=== PATIENT | female | born 1970 | race Caucasian/White ===

== ENCOUNTER 2017-10-24 09:30 | Observation (INO) | payer OTHER ==
[~2017-10-24 09:30] MED LIST: ATROPINE 1 MG/10 ML SYRINGE IV; DIPHENHYDRAMINE 50 MG INJ IV; EPHEDrine SULFATE 50 MG/5 ML SYG IV; FENTAnyl 50 MCG/ML VIAL IV; HYDROmorphONE (0.2 MG/ML) 10ML SYG IV; LABETALOL HCL 20MG INJ IV; MEPERIDINE 25 MG INJ IV; MIDAZOLAM 1 MG/ML 2 ML INJ IV; OXYCODONE/ACETAMINOPHEN (5/325) TAB PO; hydrALAzine 20 MG INJ IV; morphine (1 MG/ML) 10ML SYRINGE IV
[2017-10-24 10:50] LABS: ADD MAN DIFF? NO
[2017-10-24 10:57] LABS: BASOPHIL # 0.1 10^3/ul (0.0-0.1); BASOPHILS % 0.8 % (0.0-2.0); EOSINOPHILS # 0.4 10^3/ul (0.0-0.5); EOSINOPHILS % 3.7 % (0.0-7.0); HEMATOCRIT 37.8 % (37.0-47.0); HEMOGLOBIN 12.8 g/dl (12.0-16.0); LYMPHOCYTES # 3.5 10^3/ul (0.8-2.9); LYMPHOCYTES % 34.1 % (15.0-51.0); MEAN CORPUSCULAR HEMOGLOBIN 29.4 pg (29.0-33.0); MEAN CORPUSCULAR HGB CONC 33.9 g/dl (32.0-37.0); MEAN CORPUSCULAR VOLUME 86.7 fl (82.0-101.0); MEAN PLATELET VOLUME 9.4 fl (7.4-10.4); MONOCYTE # 0.5 10^3/ul (0.3-0.9); MONOCYTES % 4.9 % (0.0-11.0); NEUTROPHIL # 5.7 10^3/ul (1.6-7.5); NEUTROPHILS % 56.1 % (39.0-77.0); PLATELET COUNT 362 10^3/UL (140-415); RED BLOOD COUNT 4.36 10^6/ul (4.20-5.40); RED CELL DISTRIBUTION WIDTH 13.7 % (11.5-14.5)
[2017-10-24 10:57] LABS: WHITE BLOOD COUNT 10.2 10^3/ul (4.8-10.8)
[2017-10-24] MEDS ORDERED: ROCURONIUM 50 MG INJ (10:58)
[2017-10-24] MEDS ORDERED: LIDOCAINE 2% (SDV) 5 ML INJ (10:58)
[2017-10-24] MEDS ORDERED: MIDAZOLAM 1 MG/ML 2 ML INJ (10:58)
[2017-10-24] MEDS ORDERED: GLYCOPYRROLATE 0.4 MG INJ (10:58)
[2017-10-24] MEDS ORDERED: DEXAMETHASONE 4 MG/ML 1 ML INJ (10:58)
[2017-10-24] MEDS ORDERED: PROPOFOL 20 ML (10:58)
[2017-10-24] MEDS ORDERED: NEOSTIGMINE 3 MG/3 ML SYRINGE (10:58)
[2017-10-24] MEDS ORDERED: ONDANSETRON 4 MG INJ ×2 (10:58→13:20)
[2017-10-24] MEDS ORDERED: FENTAnyl 50 MCG/ML VIAL ×2 (10:58→13:19)
[2017-10-24] MEDS: VANCOMYCIN 1 GM 250 ML IVPB (11:00)
[2017-10-24 11:21] LABS: INR 0.96; PROTIME 12.9 Sec (11.9-14.9)
[2017-10-24 11:37] LABS: ALANINE AMINOTRANSFERASE 47 IU/L (13-69); ALBUMIN 4.3 g/dl (3.3-4.9); ALBUMIN/GLOBULIN RATIO 1.22; ALKALINE PHOSPHATASE 94 IU/L (42-121); ANION GAP 10 (8-16); ASPARTATE AMINO TRANSFERASE 25 IU/L (15-46); BILIRUBIN,INDIRECT 0.2 mg/dl (0-1.1); BILIRUBIN,TOTAL 0.2 mg/dl (0.2-1.3); CARBON DIOXIDE 28 mmol/L (21-31); CHLORIDE 106 mmol/L (97-110); GLUCOSE 133 mg/dl (70-220); TOTAL PROTEIN 7.8 g/dl (6.1-8.1)
[2017-10-24 11:40] LABS: BLOOD UREA NITROGEN 12 mg/dl (7-20); CALCIUM 9.1 mg/dl (8.4-10.2); CREATININE 0.68 mg/dl (0.44-1.00); POTASSIUM 4.1 mmol/L (3.5-5.1); SODIUM 140 mmol/L (135-144)
[2017-10-24] MEDS ORDERED: DIPHENHYDRAMINE 50 MG INJ (12:31)
[2017-10-24 12:42] LABS: PARTIAL THROMBOPLASTIN TIME 31.1 Sec (25.0-35.0)
[2017-10-24] MEDS ORDERED: SUCCINYLCHOLINE CHLORIDE 100 MG/5 ML SYG IV (12:43)
[2017-10-24] MEDS ORDERED: LABETALOL HCL 20MG INJ (12:53)
[2017-10-24] MEDS ORDERED: HYDROCODONE/APAP (7.5/325) TAB PO (13:00)
[2017-10-24] MEDS ORDERED: NALOXONE (0.4 MG/ML) INJ (13:04)
[2017-10-24] MEDS: ONDANSETRON 4 MG INJ IV (14:30)
[2017-10-24] MEDS: FENTAnyl 50 MCG/ML VIAL IV (14:30)
[2017-10-24] MEDS: HYDROmorphONE (0.2 MG/ML) 10ML SYG IV (14:39)
[2017-10-24] MEDS: morphine 1 MG/ML 30 ML (PCA) IV ×2 (15:21→21:57)
[2017-10-24] MEDS ORDERED: DEXTROSE 50% 50 ML SYRINGE IV ×2 (16:30)
[2017-10-24] MEDS ORDERED: GLUCOSE GEL 15 GRAM TUBE BUCCAL (16:30)
[2017-10-24] MEDS ORDERED: GLUCAGON 1 MG INJ IM (16:30)
[2017-10-24] MEDS ORDERED: GLUCOSE GEL 15 GRAM TUBE PO ×2 (16:30)
[2017-10-24] MEDS: SOD CHLORIDE 0.9% 1,000 ML IV ×2 (16:58→21:17)
[2017-10-24] MEDS: INSULIN ASPART [NOVOLOG] 3 ML PEN SC ×2 (18:53→21:19)
[2017-10-24] MEDS: NYSTATIN/TRIAMCINOLONE 15 GM CR TOP (21:17)
[2017-10-25] MEDS: ACCU-CHEK XX (02:33)
[2017-10-25 06:13] LABS: ADD MAN DIFF? NO
[2017-10-25 06:18] LABS: BASOPHILS % 0.2 % (0.0-2.0); HEMATOCRIT 35.2 % (37.0-47.0); HEMOGLOBIN 11.9 g/dl (12.0-16.0); LYMPHOCYTES # 2.1 10^3/ul (0.8-2.9); LYMPHOCYTES % 11.2 % (15.0-51.0); MEAN CORPUSCULAR HEMOGLOBIN 29.5 pg (29.0-33.0); MEAN CORPUSCULAR HGB CONC 33.8 g/dl (32.0-37.0); MEAN CORPUSCULAR VOLUME 87.1 fl (82.0-101.0); MEAN PLATELET VOLUME 9.4 fl (7.4-10.4); MONOCYTE # 0.6 10^3/ul (0.3-0.9); MONOCYTES % 3.2 % (0.0-11.0); NEUTROPHIL # 16.2 10^3/ul (1.6-7.5); NEUTROPHILS % 84.8 % (39.0-77.0); PLATELET COUNT 375 10^3/UL (140-415); RED BLOOD COUNT 4.04 10^6/ul (4.20-5.40); RED CELL DISTRIBUTION WIDTH 13.9 % (11.5-14.5)
[2017-10-25 06:18] LABS: WHITE BLOOD COUNT 19.1 10^3/ul (4.8-10.8)
[2017-10-25 06:48] LABS: ANION GAP 17 (8-16); BLOOD UREA NITROGEN 11 mg/dl (7-20); CALCIUM 8.6 mg/dl (8.4-10.2); CARBON DIOXIDE 22 mmol/L (21-31); CHLORIDE 103 mmol/L (97-110); CREATININE 0.59 mg/dl (0.44-1.00); GLUCOSE 159 mg/dl (70-220); POTASSIUM 3.9 mmol/L (3.5-5.1); SODIUM 138 mmol/L (135-144)
[2017-10-25] MEDS: NYSTATIN/TRIAMCINOLONE 15 GM CR TOP ×3 (08:40→20:41)
[2017-10-25] MEDS: INSULIN ASPART [NOVOLOG] 3 ML PEN SC ×4 (08:41→20:41)
[2017-10-25] MEDS: morphine 1 MG/ML 30 ML (PCA) IV (09:33)
[2017-10-25] MEDS: SOD CHLORIDE 0.9% 1,000 ML IV ×2 (10:21→22:31)
[2017-10-25] MEDS ORDERED: ONDANSETRON 4 MG INJ IV (13:00)
[2017-10-25] MEDS: BISACODYL (EC) 5 MG TAB PO (21:46)
[2017-10-25] MEDS: ZOLPIDEM 5 MG TAB PO (22:31)
[2017-10-26] MEDS: ACCU-CHEK XX (02:00)
[2017-10-26] MEDS: PANTOPRAZOLE 40 MG INJ IV (05:22)
[2017-10-26 05:37] LABS: ADD MAN DIFF? NO
[2017-10-26 05:46] LABS: WHITE BLOOD COUNT 12.5 10^3/ul (4.8-10.8)
[2017-10-26 05:46] LABS: BASOPHIL # 0.1 10^3/ul (0.0-0.1); BASOPHILS % 0.4 % (0.0-2.0); EOSINOPHILS # 0.3 10^3/ul (0.0-0.5); HEMATOCRIT 35.5 % (37.0-47.0); HEMOGLOBIN 11.6 g/dl (12.0-16.0); LYMPHOCYTES % 32.2 % (15.0-51.0); MEAN CORPUSCULAR HEMOGLOBIN 28.9 pg (29.0-33.0); MEAN CORPUSCULAR HGB CONC 32.7 g/dl (32.0-37.0); MEAN CORPUSCULAR VOLUME 88.3 fl (82.0-101.0); MEAN PLATELET VOLUME 9.4 fl (7.4-10.4); MONOCYTE # 0.6 10^3/ul (0.3-0.9); MONOCYTES % 5.1 % (0.0-11.0); NEUTROPHIL # 7.4 10^3/ul (1.6-7.5); NEUTROPHILS % 59.7 % (39.0-77.0); PLATELET COUNT 336 10^3/UL (140-415); RED BLOOD COUNT 4.02 10^6/ul (4.20-5.40); RED CELL DISTRIBUTION WIDTH 14.4 % (11.5-14.5)
[2017-10-26 05:58] LABS: ALANINE AMINOTRANSFERASE 41 IU/L (13-69); ALBUMIN 3.8 g/dl (3.3-4.9); ALBUMIN/GLOBULIN RATIO 1.18; ALKALINE PHOSPHATASE 67 IU/L (42-121); ANION GAP 12 (8-16); ASPARTATE AMINO TRANSFERASE 20 IU/L (15-46); BILIRUBIN,INDIRECT 0.2 mg/dl (0-1.1); BILIRUBIN,TOTAL 0.2 mg/dl (0.2-1.3); BLOOD UREA NITROGEN 12 mg/dl (7-20); CALCIUM 8.5 mg/dl (8.4-10.2); CARBON DIOXIDE 24 mmol/L (21-31); CHLORIDE 106 mmol/L (97-110); CREATININE 0.63 mg/dl (0.44-1.00); GLUCOSE 145 mg/dl (70-220); POTASSIUM 3.7 mmol/L (3.5-5.1); SODIUM 138 mmol/L (135-144)
[2017-10-26] MEDS: INSULIN ASPART [NOVOLOG] 3 ML PEN SC ×2 (08:15→12:15)
[2017-10-26] MEDS: NYSTATIN/TRIAMCINOLONE 15 GM CR TOP (09:33)
== END 2017-10-26 14:45 | disposition home or self-care (01) ==
LOC: SDS 09:30 → REC 16:11 → MS2 16:15
DX: D24.1 Benign neoplasm of right breast (principal); E11.9 Type 2 diabetes mellitus without complications; I10 Essential (primary) hypertension
CPT/HCPCS: 19301; 76705; 80048; 80053; 82962; 85025; 85610; 85730; 88307; 99217

== ENCOUNTER 2018-05-19 13:17 | Emergency (ER) | payer OTHER ==
[2018-05-19] MEDS: ONDANSETRON (ODT) 4 MG TAB ODT (14:19)
[2018-05-19] MEDS: HYDROCODONE/APAP (5/325) TAB PO (14:19)
[2018-05-19 14:31] LABS: ADD MAN DIFF? NO
[2018-05-19 14:33] LABS: WHITE BLOOD COUNT 8.3 10^3/ul (4.8-10.8)
[2018-05-19 14:33] LABS: BASOPHIL # 0.1 10^3/ul (0.0-0.1); BASOPHILS % 0.6 % (0.0-2.0); EOSINOPHILS # 0.2 10^3/ul (0.0-0.5); EOSINOPHILS % 2.8 % (0.0-7.0); HEMATOCRIT 38.2 % (37.0-47.0); HEMOGLOBIN 12.4 g/dl (12.0-16.0); LYMPHOCYTES # 2.4 10^3/ul (0.8-2.9); LYMPHOCYTES % 29.4 % (15.0-51.0); MEAN CORPUSCULAR HEMOGLOBIN 29.1 pg (29.0-33.0); MEAN CORPUSCULAR HGB CONC 32.5 g/dl (32.0-37.0); MEAN CORPUSCULAR VOLUME 89.7 fl (82.0-101.0); MEAN PLATELET VOLUME 9.4 fl (7.4-10.4); MONOCYTE # 0.4 10^3/ul (0.3-0.9); NEUTROPHIL # 5.1 10^3/ul (1.6-7.5); PLATELET COUNT 316 10^3/UL (140-415); RED BLOOD COUNT 4.26 10^6/ul (4.20-5.40); RED CELL DISTRIBUTION WIDTH 14.5 % (11.5-14.5)
[2018-05-19] MEDS: KETOROLAC 30 MG INJ IM (14:33)
[2018-05-19 14:37] LABS: ADD UMIC YES; UR ASCORBIC ACID NEGATIVE (NEGATIVE); UR BILIRUBIN (Dip) NEGATIVE (NEGATIVE); UR BLOOD (Dip) 3+ mg/dL (NEGATIVE); UR CLARITY CLOUDY (CLEAR); UR COLOR AMBER (YELLOW); UR GLUCOSE (Dip) NEGATIVE (NEGATIVE); UR KETONES (Dip) NEGATIVE (NEGATIVE); UR LEUKOCYTE ESTERASE (Dip) NEGATIVE Leu/ul (NEGATIVE); UR MUCUS MODERATE /HPF (NONE SEEN); UR NITRITE (Dip) NEGATIVE (NEGATIVE); UR RBC > 182 /HPF (0-5); UR SPECIFIC GRAVITY (Dip) 1.025 (1.003-1.030); UR SQUAMOUS EPITHELIAL CELL FEW /HPF (FEW); UR TOTAL PROTEIN (Dip) 1+ mg/dl (NEGATIVE); UR UROBILINOGEN (Dip) NEGATIVE (NEGATIVE); UR WBC 3 /HPF (0-5)
[2018-05-19 14:49] LABS: ALANINE AMINOTRANSFERASE 24 IU/L (13-69); ALBUMIN 4.3 g/dl (3.3-4.9); ALBUMIN/GLOBULIN RATIO 1.16; ALKALINE PHOSPHATASE 70 IU/L (42-121); ANION GAP 15 (8-16); ASPARTATE AMINO TRANSFERASE 21 IU/L (15-46); BILIRUBIN,INDIRECT 0.7 mg/dl (0-1.1); BILIRUBIN,TOTAL 0.7 mg/dl (0.2-1.3); BLOOD UREA NITROGEN 12 mg/dl (7-20); CALCIUM 9.1 mg/dl (8.4-10.2); CARBON DIOXIDE 23 mmol/L (21-31); CHLORIDE 107 mmol/L (97-110); CREATININE 0.67 mg/dl (0.44-1.00); GLUCOSE 126 mg/dl (70-220); LIPASE 52 U/L (23-300); POTASSIUM 3.9 mmol/L (3.5-5.1); SODIUM 141 mmol/L (135-144)
== END 2018-05-19 16:16 | disposition home or self-care (01) ==
LOC: FTE 13:17
DX: R30.0 Dysuria (principal); R10.9 Unspecified abdominal pain; E11.9 Type 2 diabetes mellitus without complications; R10.2 Pelvic and perineal pain; Z79.84 Long term (current) use of oral hypoglycemic drugs
CPT/HCPCS: 74176; 80053; 81001; 81025; 83690; 85025; 87086; 96372; 99285-25